=== PATIENT | male | born 1950 | race Caucasian/White ===

== ENCOUNTER → 2017-09-02 | Outpatient (CLI) | payer MEDICARE, OTHER, SELFPAY | PROVIDERS: Visit Provider Family Medicine | DX: E03.9 Hypothyroidism, unspecified (principal); R63.5 Abnormal weight gain; R97.20 Elevated prostate specific antigen [PSA] | CPT/HCPCS: 36415; 80053; 80061; 84153; 84443; 85025 ==

== ENCOUNTER → 2018-08-07 07:41 | Outpatient (CLI) | payer MEDICARE, OTHER, SELFPAY ==
[2018-08-07 08:08] LABS: Basophils # 0.1 K/mm3 (0-0.2); Basophils % 0.7 % (0.1-2.0); Eosinophils # 0.2 K/mm3 (0.0-0.4); Eosinophils % 3.2 % (0.1-12.0); Hematocrit 45.5 % (42.0-52.0); Hemoglobin 14.9 g/dL (14.1-18.0); Lymphocytes # 1.9 K/mm3 (0.7-4.5); Lymphocytes % 25.9 % (10-50); Mean Corpuscular HGB Conc 32.7 g/dL (31.8-35.4); Mean Corpuscular Volume 97.7 fl (80-94); Mean Platelet Volume 7.3 fl (7.4-10.4); Monocytes # 0.6 K/mm3 (0.1-1.0); Monocytes % 7.8 % (1.7-9.3); Neutrophils # 4.5 K/mm3 (1.8-7.8); Neutrophils % 62.3 % (37.0-80.0); Platelet Count 380 K/mm3 (142-424); Red Blood Count 4.65 M/mm3 (4.60-6.20); Red Cell Distribution Width 13.4 % (11.5-17.5); White Blood Count 7.2 K/mm3 (4.8-10.8)
[2018-08-07 09:13] LABS: Alanine Aminotransferase 27 U/L (12-78); Albumin Level 3.7 gm/dL (3.4-5.0); Albumin/Globulin Ratio 1.1 (1.1-1.8); Alkaline Phosphatase 112 U/L (46-116); Anion Gap 13.4 mEq/L (5-15); Aspartate Amino Transferase 14 U/L (15-37); Bilirubin,Total 1.3 mg/dL (0.2-1.0); Blood Urea Nitrogen 7 mg/dL (7-18); Calcium 8.8 mg/dL (8.5-10.1); Carbon Dioxide 30 mmol/L (21.0-32.0); Chloride 100 mmol/L (98-107); Chol/HDL Ratio 4.9 (1-3.5); Cholesterol 240 mg/dL (140-200); Creatinine,Serum 1.01 mg/dL (0.70-1.30); Estimated Glomerular Filt Rate 73 ml/min (>60); GFR (African American) 89 ML/MIN (>60); Globulin 3.5 gm/dl (1.3-3.2); Glucose 103 mg/dL (74-106); HDL Cholesterol 49 mg/dL (27-67); LDL Cholesterol 172 mg/dL (0-130); Potassium 4.4 mmoL/L (3.5-5.1); Sodium 139 mmol/L (136-145); Thyroid Stimulating Hormone 4.27 uIU/ml (0.358-3.740); Total Protein,Serum 7.2 gm/dL (6.4-8.2); Triglycerides 94 mg/dL (30-200); VLDL Cholesterol 19 mg/dL (0-40)
== END ==
PROVIDERS: Visit Provider Family Medicine
DX: R53.83 Other fatigue (principal); E78.5 Hyperlipidemia, unspecified; R97.20 Elevated prostate specific antigen [PSA]
CPT/HCPCS: 36415; 80053; 80061; 84153; 84443; 85025

== ENCOUNTER → 2019-08-21 07:56 | Outpatient (CLI) | payer MEDICARE, SELFPAY ==
[2019-08-21 09:25] LABS: Alanine Aminotransferase 15 U/L (12-78); Alkaline Phosphatase 104 U/L (46-116); Anion Gap 8.1 mEq/L (5-15); Aspartate Amino Transferase 9 U/L (15-37); Bilirubin,Total 0.5 mg/dL (0.2-1.0); Blood Urea Nitrogen 4 mg/dL (7-18); Calcium 8.3 mg/dL (8.5-10.1); Carbon Dioxide 33 mmol/L (21.0-32.0); Chloride 105 mmol/L (98-107); Chol/HDL Ratio 4.5 (1-3.5); Cholesterol 179 mg/dL (140-200); Creatinine,Serum 1.06 mg/dL (0.70-1.30); Estimated Glomerular Filt Rate 69 ml/min (>60); GFR (African American) 84 ML/MIN (>60); Globulin 3.1 gm/dl (1.3-3.2); Glucose 88 mg/dL (74-106); HDL Cholesterol 40 mg/dL (27-67); LDL Cholesterol 116 mg/dL (0-130); Potassium 4.1 mmoL/L (3.5-5.1); Sodium 142 mmol/L (136-145); Thyroid Stimulating Hormone 2.57 uIU/ml (0.358-3.740); Total Protein,Serum 6.1 gm/dL (6.4-8.2); Triglycerides 117 mg/dL (30-200); VLDL Cholesterol 23 mg/dL (0-40)
== END ==
PROVIDERS: Visit Provider Family Medicine
DX: E03.9 Hypothyroidism, unspecified (principal); E78.5 Hyperlipidemia, unspecified; R97.20 Elevated prostate specific antigen [PSA]; Z12.5 Encounter for screening for malignant neoplasm of prostate
CPT/HCPCS: 36415; 80053; 80061; 84443; G0103

== ENCOUNTER 2020-03-02 12:39 | Emergency (ER) | payer MEDICARE, OTHER, SELFPAY ==
[2020-03-02 12:39] VITALS: BP 166/84; PULSE 85; RESP 18; TEMP 36.8; O2SAT 98
--- NOTE | 2020-03-02 12:42 | CT_ITS ---
PROCEDURE: CT HEAD/BRAIN WO CON CLINICAL INDICATION: Stroke Protocol Decreased sensation right side of body COMPARISON: No exams were available for comparison TECHNIQUE: Axial images obtained. All CT scans at the facility use one or more dose reduction, viz: automated exposure control, ma/kV adjustment per patient size (including targeted exams where dose is matched to indication, i.e. head), or iterative reconstruction technique. FINDINGS: No midline shift, mass effect, intracranial hemorrhage, hydrocephalus, or extra-axial fluid collection is evident. There are mild periventricular hypodensities consistent with chronic ischemic white matter changes. The sylvian fissures and cortical sulci are prominent. The calvarium has an unremarkable appearance. No mastoid effusion. No sinus air-fluid level. IMPRESSION: Findings of moderate age-appropriate cortical atrophy and mild chronic ischemic white matter changes, no acute intracranial pathology noted Dictated by: Dr. Des Barton MD 03/02/2020 13:[address] Des Barton MD in [place] 03/02/2020 13:03
--- NOTE | 2020-03-02 12:43 | PC.NURSE ---
notified rad of Ct head order-stroke protocol
--- NOTE | 2020-03-02 12:45 | CT_ITS ---
PROCEDURE: CT SINUS WO CON CLINICAL HISTORY: Head Pressure COMPARISON: No exams were available for comparison TECHNIQUE: Axial images obtained with sagittal and coronal reformats. All CT scans at the facility use one or more dose reduction, viz: automated exposure control, ma/kV adjustment per patient size (including targeted exams where dose is matched to indication, i.e. head), or iterative reconstruction technique. FINDINGS: There is moderate mucoperiosteal thickening floor of left maxillary sinus. Right maxillary sinus is clear. The ethmoid sinuses are clear, there is minimal mucoperiosteal thickening right frontal sinus. The sphenoid sinus is clear. The mastoids are clear. Both internal auditory canals appear normal. The nasal septum is in the midline. IMPRESSION: Mild chronic inflammatory changes of the left maxillary and right frontal sinus Dictated by: Dr. Des Barton MD 03/02/2020 13:[address] Des Barton MD in [facility] 03/02/2020 13:05
--- NOTE | 2020-03-02 12:45 | PC.NURSE ---
ANABELLA JULIEN at
--- NOTE | 2020-03-02 12:48 | PC.NURSE ---
pt to rad
--- NOTE | 2020-03-02 12:48 | PC.NURSE ---
pt to CT
--- NOTE | 2020-03-02 12:59 | PC.NURSE ---
Pt returned from rad
--- NOTE | 2020-03-02 13:21 | HMH.EDGENADL ---
ED Disposition Clinical Impression: Acute sinusitis Disposition: Home, Self-Care Condition on Discharge: Good Instructions: Sinusitis Prescriptions: Azithromycin [Zithromax 500mg Tab] 500 mg PO DAILY 7 Days #7 tab Prescription Printed Referrals: Gibson Atkins MD [Primary Care Provider] - - Critical Care Critical Care Time: No Attestation: On 03/02/20, the high probability of a clinically significant, sudden or life threatening deterioration of the following system(s) required my full and direct attention, intervention and personal management. The time I documented below is in addition to time spent performing reported procedures but includes the following listed in this critical care notation. Medical Decision Making - Medical Records Medical records reviewed: Yes: I reviewed the patient's medical records. - Trung Inquiry Pt receiving controlled substance: No Vital Signs: 03/02/20 12:39 Temperature 98.2 F Temperature Source Oral Pulse Rate [Right Radial] 85 Respiratory Rate 18 Blood Pressure [Right Arm] 166/84 H Blood Pressure Mean [Right Arm] 111 Blood Pressure Source [Right Arm] Automatic Cuff Blood Pressure Position [Right Arm] Sitting 02 Sat by Pulse Oximetry 98 Oxygen Delivery Method Room Air - Lab Data Lab results reviewed: Yes: I reviewed the patient's lab results. Orders (Tests/Meds): ED MEDICATIONS Discontinued Medications Generic Name Dose Route Start Last Admin Trade Name Rosibel PRN Reason Stop Dose Admin Aspirin 325 mg 03/02/20 13:06 03/02/20 13:15 Aspirin 325mg Tablet PO 03/02/20 13:07 325 mg ONCE ONE Administration ORDERS Category Date Time Status Complete Blood Count Auto Diff Stat Lab 03/02/20 13:10 Received Comprehensive Metabolic Panel Stat Lab 03/02/20 13:10 Received - CT Data CT Scan: Head Time Received: 13:[address] Reviewed: Yes: I have viewed the radiologist's interpretation Preliminary Findings: Normal/NAD General Adult HPI - General Chief complaint: Neuro Symptoms/Deficit Stated complaint: Possible stroke Time Seen by Provider: 03/02/20 13:21 Mode of Arrival: Wheelchair Limitations: No Limitations Description of Symptoms (Recalled from ER Triage Doc. by RN): Pt reports has had 3 episodes today of decreased sensation on the R side of his body. Pt also reports that he has had difficulty lifting his leg earlier today during one of these episodes. Pt reports first occurance was at 7:00am today. Pt reports episodes lasted approx 5-10 minutes each. Pt has no deficits upon arrival to ED. - History of Present Illness HPI narrative: 69-year-old male presents the ED having some weakness in the right side of his body that is been going on for the past 4 days. He stated that he felt some numbness and tingling in the right leg and felt a little weak and also complained about the same thing in the left upper extremity as well however here in the ED his symptoms have resolved. He does complain about a lot of sinus pressure in his face and also in the front part of his head as well. He states he is been outside of the last 2 to 3 days cutting grass and is been constantly sneezing and also has some general malaise as well. Otherwise no other acute issues. - Related Data Previous Rx's Medication Instructions Recorded Azithromycin [Zithromax 500mg 500 mg PO DAILY 7 Days #7 tab 03/02/20 Tab] Allergies Allergy/AdvReac Type Severity Reaction Status Date / Time Penicillins Allergy Verified 03/02/20 13:22 [facility] History - Hepatitis A Screen Drug use history?: No High risk sexual behaviors?: No History of sexually transmitted infection?: No Currently employed?: No Childcare worker?: No Do you have indoor plumbing?: Yes Do you have electricity?: Yes Attestation statement:: This patient has been screened for Hepatitis A risk factors. I have reviewed the patient's past medical history: Yes - Social Histo
[2020-03-02 13:26] LABS: Basophils % 0.5 % (0.1-2.0); Chloride 99 mmol/L (98-107); Eosinophils # 0.1 K/mm3 (0.0-0.4); Eosinophils % 0.7 % (0.1-12.0); Hematocrit 44.4 % (42.0-52.0); Hemoglobin 15.4 g/dL (14.1-18.0); Lymphocytes # 0.9 K/mm3 (0.7-4.5); Lymphocytes % 9.9 % (10-50); Mean Corpuscular HGB Conc 34.8 g/dL (31.8-35.4); Mean Corpuscular Hemoglobin 32.6 pg (27.0-31.2); Mean Corpuscular Volume 93.9 fl (80-94); Mean Platelet Volume 7.1 fl (7.4-10.4); Monocytes # 0.5 K/mm3 (0.1-1.0); Monocytes % 5.4 % (1.7-9.3); Neutrophils # 7.8 K/mm3 (1.8-7.8); Neutrophils % 83.5 % (37.0-80.0); Platelet Count 383 K/mm3 (142-424); Potassium 3.7 mmoL/L (3.5-5.1); Red Blood Count 4.72 M/mm3 (4.60-6.20); Sodium 134 mmol/L (136-145); White Blood Count 9.3 K/mm3 (4.8-10.8)
[2020-03-02 13:29] LABS: Alanine Aminotransferase 18 U/L (12-78); Albumin Level 4.2 g/dl (3.5-5.0); Albumin/Globulin Ratio 1.2 (1.1-1.8); Alkaline Phosphatase 123 U/L (38-126); Anion Gap 9.7 mEq/L (5-15); Aspartate Amino Transferase 24 U/L (17-59); Bilirubin,Total 1.2 mg/dl (0.2-1.3); Blood Urea Nitrogen 6 mg/dl (9-20); Carbon Dioxide 29 mmol/L (22.0-30.0); Creatinine Clearance Estimated 63 mL/min (50-200); Estimated Glomerular Filt Rate 84 ml/min (>60); GFR (African American) 101 ML/MIN (>60); Globulin 3.6 g/dL (1.3-3.2); Total Protein,Serum 7.8 g/dl (6.3-8.2)
[2020-03-02 13:30] LABS: Calcium 8.8 mg/dl (8.4-10.2); Glucose 119 mg/dl (74-100)
[2020-03-02 13:54] VITALS: BP 136/75; PULSE 82; RESP 18; TEMP 36.8; O2SAT 98
== END 2020-03-02 13:54 | disposition home or self-care (01) ==
PROVIDERS: Emergency Provider Family Medicine; PCP Family Medicine
DX: J01.90 Acute sinusitis, unspecified (principal); F17.210 Nicotine dependence, cigarettes, uncomplicated; Z88.0 Allergy status to penicillin
CPT/HCPCS: 70450; 70486; 80053; 85025; 99283

== ENCOUNTER → 2020-03-04 08:15 | Outpatient (CLI) | payer MEDICARE, OTHER, SELFPAY ==
--- NOTE | 2020-03-04 08:28 | MR_ITS ---
PROCEDURE: MR ANGIO HEAD WO CON CLINICAL INDICATION: TIA COMPARISON: No exams were available for comparison TECHNIQUE: Standard MRI protocol FINDINGS: The carotid, vertebrobasilar, and arterial anatomy of the anterior, posterior, and the bilateral middle fossa is unremarkable for significant atheromatous disease, critical stenosis, or occlusion. IMPRESSION: Negative Dictated by: Armani Reece 03/04/2020 11:24 Electronically signed by Armani Reece in [place] 03/04/2020 11:24
--- NOTE | 2020-03-04 08:28 | MR_ITS ---
PROCEDURE: MR HEAD/BRAIN WO/W CON CLINICAL INDICATION: TIA COMPARISON: CT HEAD/BRAIN WO CON from 03/02/2020 TECHNIQUE: Standard enhanced brain MRI protocol with 19 cc IV ProHance FINDINGS: There are scattered restrictive diffusion abnormalities within the left occipital white matter with associated T2 prolongation. The vertebral basilar vascular flow voids, 7th and 8th nerves, pituitary, and the orbits are unremarkable. There is mild mucosal thickening of the left maxillary, ethmoidal and frontal sinuses. There are scattered foci of T2 prolongation within the subcortical and periventricular white matter. There are no abnormal enhancing mass lesions or hemorrhage. IMPRESSION: Subacute left occipital CVA, supratentorial micro ischemia Dictated by: Armani Reece 03/04/2020 11:18 Electronically signed by Armani Reece in [place] 03/04/2020 11:18
== END ==
PROVIDERS: PCP Family Medicine; Visit Provider Family Medicine
DX: G45.9 Transient cerebral ischemic attack, unspecified (principal)
CPT/HCPCS: 70544; 70553; A9576

== ENCOUNTER → 2020-03-12 13:12 | Outpatient (CLI) | payer MEDICARE, OTHER, SELFPAY ==
--- NOTE | 2020-03-12 | CA_ITS ---
APPROVED REPORT [employer]: Radha Casas RVT Laterality: Bilateral Study Quality: Excellent Indications: CVA Risk Factors Smoking Doppler Spectral Velocity Analysis ECA (R) 73.10/8.00 cm/s ECA (L) 87.90/9.40 cm/s dICA (R) 101.90/32.50 cm/s dICA (L) 91.60/29.10 cm/s Kaycee (R) 98.70/26.10 cm/s Kaycee (L) 91.60/29.70 cm/s pICA (R) 84.30/26.10 cm/s pICA (L) 79.00/27.70 cm/s dCCA (R) 76.40/14.80 cm/s dCCA (L) 65.50/17.80 cm/s pCCA (R) 100.80/18.60 cm/s pCCA (L) 85.50/16.10 cm/s Vert (R) 47.70/12.60 cm/s Vert (L) 42.20/8.80 cm/s ICA/CCA 1.33 ICA/CCA 1.40 Findings Study suggests less than 20% stenosis of the right and left internal cartoid arteries. Antegrade flow seen bilateral vertebral arteries. Conclusion No increased velocities to suggest hemodynamically significant stenosis in either internal carotid artery. Electronically signed by : Manav Chacon MD 03/12/2020 17:13:40
== END ==
PROVIDERS: PCP Family Medicine; Visit Provider Family Medicine
DX: I63.89 Other cerebral infarction (principal)
CPT/HCPCS: 93880

== ENCOUNTER → 2020-05-30 07:58 | Outpatient (CLI) | payer MEDICARE, OTHER, SELFPAY ==
[2020-05-30 10:29] LABS: Iron 85 ug/dL (49-181)
[2020-05-30 10:33] LABS: Alanine Aminotransferase 18 U/L (12-78); Albumin Level 3.8 g/dl (3.5-5.0); Albumin/Globulin Ratio 1.3 (1.1-1.8); Alkaline Phosphatase 116 U/L (38-126); Anion Gap 7.7 mEq/L (5-15); Aspartate Amino Transferase 29 U/L (17-59); Bilirubin,Total 1.3 mg/dl (0.2-1.3); Blood Urea Nitrogen 8 mg/dl (9-20); Calcium 9.4 mg/dl (8.4-10.2); Carbon Dioxide 31 mmol/L (22.0-30.0); Chloride 105 mmol/L (98-107); Chol/HDL Ratio 4.3 (1-3.5); Cholesterol 189 mg/dl (140-200); Estimated Glomerular Filt Rate 83 ml/min (>60); GFR (African American) 101 ML/MIN (>60); Glucose 96 mg/dl (74-100); HDL Cholesterol 44 mg/dl (40-60); Potassium 4.7 mmoL/L (3.5-5.1); Sodium 139 mmol/L (136-145); Total Protein,Serum 6.8 g/dl (6.3-8.2); Triglycerides 89 mg/dl (30-150); VLDL Cholesterol 18 mg/dL (0-40)
[2020-05-30 10:44] LABS: Direct LDL Cholesterol 128.77 mg/dL (100-129)
[2020-05-30 11:03] LABS: Prostate Specific Ag Screen 4.7 ng/ml (0.0-4.0); Thyroid Stimulating Hormone 3.51 uIU/mL (0.465-4.68)
[2020-05-30 11:21] LABS: Vitamin B12 226 pg/mL (239-931)
== END ==
PROVIDERS: Visit Provider Family Medicine
DX: E03.9 Hypothyroidism, unspecified (principal); E78.5 Hyperlipidemia, unspecified; I63.9 Cerebral infarction, unspecified; R53.83 Other fatigue; Z12.5 Encounter for screening for malignant neoplasm of prostate
CPT/HCPCS: 36415; 80053; 80061; 82607; 83540; 84443; G0103

== ENCOUNTER → 2021-02-27 07:06 | Outpatient (CLI) | payer MEDICARE, OTHER, SELFPAY ==
[2021-02-27 07:58] LABS: Chloride 104 mmol/L (98-107); Potassium 4.3 mmoL/L (3.5-5.1); Sodium 139 mmol/L (136-145)
[2021-02-27 08:00] LABS: Blood Urea Nitrogen 4 mg/dl (9-20); Estimated Glomerular Filt Rate 83 ml/min (>60); GFR (African American) 101 ML/MIN (>60)
[2021-02-27 08:01] LABS: Alanine Aminotransferase 18 U/L (12-78); Albumin Level 3.9 g/dl (3.5-5.0); Albumin/Globulin Ratio 1.3 (1.1-1.8); Alkaline Phosphatase 110 U/L (38-126); Anion Gap 9.3 mEq/L (5-15); Aspartate Amino Transferase 25 U/L (17-59); Bilirubin,Total 1.1 mg/dl (0.2-1.3); Carbon Dioxide 30 mmol/L (22.0-30.0); Cholesterol 219 mg/dl (140-200); Globulin 2.9 g/dL (1.3-3.2); Total Protein,Serum 6.8 g/dl (6.3-8.2); Triglycerides 102 mg/dl (30-150); VLDL Cholesterol 20 mg/dL (0-40)
[2021-02-27 08:02] LABS: Chol/HDL Ratio 5.2 (1-3.5); Glucose 96 mg/dl (74-100); HDL Cholesterol 42 mg/dl (40-60)
[2021-02-27 08:12] LABS: Direct LDL Cholesterol 146.09 mg/dL (100-129)
== END ==
PROVIDERS: Visit Provider Family Medicine
DX: I10 Essential (primary) hypertension (principal); E78.5 Hyperlipidemia, unspecified; I63.9 Cerebral infarction, unspecified
CPT/HCPCS: 36415; 80053; 80061

== ENCOUNTER → 2021-08-24 07:59 | Outpatient (CLI) | payer MEDICARE, OTHER, SELFPAY ==
[2021-08-24 09:26] LABS: Alanine Aminotransferase 17 U/L (12-78); Albumin Level 3.8 g/dl (3.5-5.0); Albumin/Globulin Ratio 1.4 (1.1-1.8); Alkaline Phosphatase 128 U/L (38-126); Anion Gap 8.6 mEq/L (5-15); Aspartate Amino Transferase 25 U/L (17-59); Bilirubin,Total 0.8 mg/dl (0.2-1.3); Blood Urea Nitrogen 6 mg/dl (9-20); Calcium 9.2 mg/dl (8.4-10.2); Carbon Dioxide 33 mmol/L (22.0-30.0); Chloride 99 mmol/L (98-107); Chol/HDL Ratio 4.4 (1-3.5); Cholesterol 200 mg/dl (140-200); Estimated Glomerular Filt Rate 66 ml/min (>60); GFR (African American) 80 ML/MIN (>60); Globulin 2.8 g/dL (1.3-3.2); Glucose 99 mg/dl (74-100); HDL Cholesterol 45 mg/dl (40-60); Potassium 4.6 mmoL/L (3.5-5.1); Sodium 136 mmol/L (136-145); Total Protein,Serum 6.6 g/dl (6.3-8.2); Triglycerides 99 mg/dl (30-150); VLDL Cholesterol 20 mg/dL (0-40)
[2021-08-24 09:37] LABS: Direct LDL Cholesterol 133.19 mg/dL (100-129)
[2021-08-24 09:57] LABS: Prostate Specific Ag, Diagnost 6.01 ng/ml (0.0-4.0)
== END ==
PROVIDERS: Visit Provider Family Medicine
DX: I10 Essential (primary) hypertension (principal); E78.5 Hyperlipidemia, unspecified; R97.20 Elevated prostate specific antigen [PSA]
CPT/HCPCS: 36415; 80053; 80061; 84153

== ENCOUNTER 2024-07-06 08:30 | Outpatient (CLI) | payer MEDICARE, OTHER, SELFPAY ==
[2024-07-06 08:58] LABS: Basophils # 0.1 K/mm3 (0-0.2); Eosinophils # 0.1 K/mm3 (0.0-0.4); Eosinophils % 1.8 % (0.1-12.0); Hematocrit 45.1 % (42.0-52.0); Hemoglobin 15.3 g/dL (14.1-18.0); Lymphocytes % 18.2 % (10-50); Mean Corpuscular Hemoglobin 32.4 pg (27.0-31.2); Mean Corpuscular Volume 95.1 fl (80-94); Mean Platelet Volume 7.1 fl (7.4-10.4); Monocytes # 0.6 K/mm3 (0.1-1.0); Neutrophils # 3.8 K/mm3 (1.8-7.8); Platelet Count 386 K/mm3 (142-424); Red Blood Count 4.74 M/mm3 (4.60-6.20); Red Cell Distribution Width 13.1 % (11.5-17.5); White Blood Count 5.6 K/mm3 (4.8-10.8)
[2024-07-06 09:47] LABS: Alanine Aminotransferase 14 U/L (12-78); Albumin Level 3.9 g/dl (3.5-5.0); Albumin/Globulin Ratio 1.6 (1.1-1.8); Alkaline Phosphatase 102 U/L (38-126); Anion Gap 7.7 mEq/L (5-15); Aspartate Amino Transferase 24 U/L (17-59); Bilirubin,Total 0.8 mg/dl (0.2-1.3); Blood Urea Nitrogen 8 mg/dl (9-20); Calcium 9.2 mg/dl (8.4-10.2); Carbon Dioxide 29 mmol/L (22.0-30.0); Chloride 102 mmol/L (98-107); Chol/HDL Ratio 2.9 (1-3.5); Cholesterol 176 mg/dl (140-200); Estimated Glomerular Filt Rate 82 ml/min (>60); GFR (African American) 100 ML/MIN (>60); Globulin 2.4 g/dL (1.3-3.2); Glucose 89 mg/dl (74-100); HDL Cholesterol 60 mg/dl (40-60); Potassium 4.7 mmoL/L (3.5-5.1); Sodium 134 mmol/L (136-145); Total Protein,Serum 6.3 g/dl (6.3-8.2); Triglycerides 63 mg/dl (30-150); VLDL Cholesterol 13 mg/dL (0-40)
[2024-07-06 09:57] LABS: Direct LDL Cholesterol 104.71 mg/dL (100-129)
[2024-07-06 10:17] LABS: Prostate Specific Ag, Diagnost 4.99 ng/ml (0.0-4.0); Thyroid Stimulating Hormone 2.34 uIU/mL (0.465-4.68)
== END 2024-07-06 23:59 | disposition home or self-care (01) ==
LOC: LAB 08:37
PROVIDERS: PCP Family Medicine; Visit Provider Family Medicine
DX: I63.9 Cerebral infarction, unspecified (principal); R97.20 Elevated prostate specific antigen [PSA]; R63.4 Abnormal weight loss; J44.9 Chronic obstructive pulmonary disease, unspecified
CPT/HCPCS: 36415; 80053; 80061; 84153; 84443; 85025

== ENCOUNTER 2025-06-17 13:35 | Outpatient (CLI) | payer MEDICARE, OTHER, SELFPAY ==
--- OUTSIDE RECORDS SUMMARY | 2025-02-21 10:00 | XMS_ITS ---
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 Name Role Phone Yo Atkins Primary Care Provider Allergies Allergen (clinical drug ingredient) Drug/Non Drug Allergy documented on EMR Reaction Allergy Type Onset Date Status Penicillin he denies PCN allergy as of 10/28/2009 Drug Allergy Active REASON FOR VISIT Sore ribs Medications Medication SIG (Take, Route, Frequency, Duration) Notes Start Date End Date Status Bactrim DS 800-160 MG 1 tablet Orally Tw o times a day 10/04/2024 Not-Taking Plavix 75 MG 1 tab(s) orally once a day; Duration: 90 days Active Aspirin 81 MG 1 tab(s) orally ever y other day Active Clotrimazole-Betamethaso ne 1-0.05 % 1 application Externally Twice a day 09/11/2024 Not-Taking Vital Signs Weight 147.0 lbs 02/21/2025 Blood pressure systolic 128 mm Hg 02/22/20 25 Blood pressure diastolic 70 mm Hg 025 Heart Rate 68 /min 02/21/2025 Height 68 in 02/21/2025 BMI 22.35 kg/m2 02/21/2025 Encounters Encounter Location Date Provider Diagnosis [facility] [address] [facility] [address] [place] [id number] 02/21/2025 Yo Atkins Chest wall pain R07. 89 ; Chronic obstructive pulmonary disease, unspecified COPD type J44.9 ; Dyslipidemia E78.5 ; Tobacco use disorder F17.200 and BMI 22.0-22.9, adult Z68.22 Assessments Encounter Date Diagnosis (ICD Code) Assessment Notes Treatment Notes Treatment Clinical Notes Section Notes 02/21/2025 Chest wall pain (ICD-10 - R07.89) Alternate heat and ice. Tylenol and/or Motrin as needed 02/21/2025 Chronic obstructive pulmonary disease, unspecified COPD type (ICD-10 - J44.9) 02/21/2025 Dyslipidemia (ICD-10 - E78.5) 02/21/2025 Tobacco use disorder (ICD-10 - F17.200) 02/21/2025 BMI 22.0-22.9, adult (ICD-10 - Z68.22) Plan Of Treatment Next Appt Details Follow Up: prn, Reason: Progress Notes * Santos ESPINOZANEDOB: (75 yo M)Acc No.[id number]:02/21/2025 Progress Notes Patient: Santos RAMOS Provider: Yo Atkins M.D. :1950 A ge:74 Y S ex:Male Date:02/21/2025 Address:[address] [place] [address] [facility] [id number] Subjective: * Chief Complaints: * 1 . Sore ribs. * HPI: C hest: Misael was working in his yard yesterday and woke this morning with soreness around the left lateral rib cage. He recalls no specific injury. Denies increased shortness of breath, cough, hemoptysis. * ROS: D ERMATOLOGY: no R nilton. n o H rosa. G ASTROENTEROLOGY: no N ausea. n o V omiting. n o D iarrhea.? U ROLOGY: no D ifficulty urinating. n o B lood in urine. 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 * Surgical History: a ppendectomy child, C-scope 04/2015; 05/2018. * Hospitalization/Major Diagno stic Procedure: n one , [facility] ER-fell and knocked himself unconscious 11/21/10, [facility] ER-felt dizzy, unable to walk 03/02/2020. * Family History: F ather: , heart attack. M other: , kidney disease. 1 brother(s) . .? * Social History: C URRENT TOBACCO USE S moking Status: Patient does smoke, packs per day: 2, number of cigarettes per day: 40, Since age of: 25, Smoking preference: cigarettes. C affeine: yes, frequency:. Exercise: yes. Home smoke detector use: yes. Marital Status: . Occupation: [employer]. Past smoking status: yes, PPD: 2 , years: since age of 25 yrs. ,determination:. Recreational drug use: no. Alcohol: no. * Medications: T aking Aspirin 81 MG Tablet Delayed Release 1 tab(s) orally every other day , Taking Plavix 75 MG Tablet 1 tab(s) orally once a day , Not-Taking Bactrim DS 800-160 MG Tablet 1 tablet Orally Two times a day , Not-Taking Clotrimazole-Betamethasone 1-0.05 % Cream 1 application Externally Twice a day , Medication List reviewed and reconciled with the patient * Allergies: P enicillin: he denies PCN allergy as of 10/28/2009. Objective: * Vitals: W t: 147.0, Temp: 97.7, BP: 128/70, HR: 68, Nurse: laura, Ht: 68, BMI:22.35. * Examination: G eneral Examination: General Appearance: N AD. H EENT: T he lesion on his right face is blistered from his recent cryosurgery. C hest: T here is mild tenderness over the left lateral rib cage. No point tenderness.. H eart: R SR. L ungs: G enerally diminished breath sounds. Assessment: * Assessment: 1. C hest wall pain - R07.89 (Primary) 2 . C hronic obstructive pulmonary disease, unspecified COPD type - J44.9 3 . D yslipidemia - E78.5 4 . T obacco use disorder - F17.200 5 . B MS 22.0-22.9, adult - Z68.22 ? Plan: * Treatment: * Procedure Codes: G 2211 Complex e/m visit add on, G5420 BMI<30 AND >=22 CALC & DOCU, G5879 BP SCR PRFRM RCMDD DEFIND SCR INTVL, G8752 MOST RECENT SYSTOLIC BP < 140MM HG, G8754 MOST RECENT DIASTOLIC BP < 90MM HG * Follow Up: p rn * Images: Billing Information: * Visit Code: 05519 Office Visit, Est Pt., Level 3. * Procedure Codes: G2211 Complex e/m visit add on. G8420 BMI<30 AND >=22 CALC & DOCU. G8783 BP SCR PRFRM RCMDD DEFIND SCR INTVL. G8752 MOST RECENT SYSTOLIC BP < 140MM HG. G8754 MOST RECENT DIASTOLIC BP < 90MM HG. * Electronic signature of Yo Atkins MD on 06/17/2025 at 01:40 PM EDT Sign off status: Pending * Provider: Yo Atkins M.D. Date: 0 02/21/2025 Generated for Marisel beasley/Diya/Zenysmitting on: 1 01:40 PM EDT History and Physical Notes * HPI (History of Present Illness) Category Sub-Category Detail Notes Category Not es Chest Misael was worki ramos in his yard yesterday and woke this morning with soreness around the left lateral rib cage. He recalls no specific injury. Denies increased shortness of breath, cough, hemoptysis. Examination Category Sub-Category Detail Notes Category Not es General Examination HEENT: The lesion o n his right face is blistered from his recent cryosurgery Heart: RSR Lungs: Generally diminished breath sounds General Appearance: NAD Chest: There is mild tender ness over the left lateral rib cage. No point tenderness.
--- OUTSIDE RECORDS SUMMARY | 2025-04-11 11:45 | XMS_ITS ---
[facility] Address [address] [place] [id number] Care Team Providers Care Curing Machine Operator Name Role Phone Yo Atkins Primary Care Provider Allergies Allergen (clinical drug ingredient) Drug/Non Drug Allergy documented on EMR Reaction Allergy Type Onset Date Status Penicillin he denies PCN allergy as of 10/28/2009 Drug Allergy Active Results Component Value Reference Range Notes CBC Venipuncture (in house) Reviewed date:04/16/2025 10:22:13 PM Interpretation:Normal Performing Lab: Notes/Report: Normal wbc 7.4 3.5 - 10 lymph 15.8 15 - 50 mid 5.1 2 - 15 gran 79.1 35 - 80 rbc 4.36 3.5 - 5.5 hgb 13.7 11.5 - 16.5 hct 40.2 35 - 55 mcv 92.2 75 - 100 mch 31.4 25 - 35 mchc 34.1 31 - 38 platlet 418 100 - 400 P-Comprehensive Metabolic Pa suhail (CMP) Reviewed date:04/16/2025 10:22:13 PM Interpretation:Na 131, cl 94, bun 7, bili 1.3 Performing Lab: Notes/Report: CLIA: [id number] Philippe Lin MD, Outside Sales Consultant [facility] , [address], [place] [address] Test performed by [facility], [facility] Sodium 131 135-145 mmol/L Potassium 4.3 3.5-5.3 mmol/L Chloride 94 97-108 mmol/L CO2 25 20-32 mmol/L Glucose 85 65-99 mg/dL BUN 7 8-23 mg/dL Creatinine 0.83 0.70-1.30 mg/dL Calcium 8.8 8.6-10.4 mg/dL eGFR by Creatinine 91 >59 mL/min/1.73m2 Protein 6.2 6.0-8.3 g/dL Albumin 4.0 3.5-5.3 g/dL Alkaline Phosphatase 105 40-129 IU/L ALT (SGPT) 13 <5-55 IU/L AST (SGOT) 17 <5-46 IU/L Bilirubin, Total 1.3 <0.2-1.2 mg/dL A/G Ratio 1.8 1.1-2.5 P-Magnesium Reviewed date:04/16/2025 10:22:13 PM Interpretation:Normal Performing Lab: Notes/Report: Test performed by [facility] [address] [place] [address] , [address], [place] [address] Philippe Lin MD, Outside Sales Consultant CLIA: [id number] Magnesium 2.1 1.6-2.4 mg/dL P-PSA Reviewed date:04/16/2025 10:22:13 PM Interpretation:8.41 Performing Lab: Notes/Report: Test performed by [facility] [address] [place] [address] , [address], [place] [address] Philippe Lin MD, Outside Sales Consultant CLIA: [id number] PSA 8.41 <4.00 ng/mL Please note this is an ultrasensitive PSA assay with a lower limit of detection of 0.014 ng/mL. This test is performed by the [employer] ECLIA methodology. Values obtained with different assay methods or kits cannot be directly compared. P-TSH Reviewed date:04/16/2025 10:22:13 PM Interpretation:Normal Performing Lab: Notes/Report: Test performed by [facility] [address] [place] [address] , [address], [place] [address] Philippe Lin MD, Outside Sales Consultant CLIA: [id number] TSH 1.99 0.43-5.25 mU/L REASON FOR VISIT check up, muscles and sinuses, Needs labs, low dose chest CT, Prevnar, & shingles vaccine Medications Medication SIG (Take, Route, Frequency, Duration) Notes Start Date End Date Status Clotrimazole-Betamethaso ne 1-0.05 % 1 application Externally Twice a day 09/11/2024 Not-Taking Symbicort 160-4.5 MCG/ACT 2 puffs Inhalation twice a day 04/11/2025 Active Plavix 75 MG 1 tab(s) orally once a day; Duration: 90 days Active Bactrim DS 800-160 MG 1 tablet Orally Tw o times a day 10/04/2024 Not-Taking Aspirin 81 MG 1 tab(s) orally ever y other day Active Vital Signs Weight 144.0 lbs 04/11/2025 Blood pressure systolic 130 mm Hg 04/11/20 25 Blood pressure diastolic 80 mm Hg 025 Heart Rate 86 /min 04/11/2025 Height 68 in 04/11/2025 BMI 21.89 kg/m2 04/11/2025 Encounters Encounter Location Date Provider Diagnosis [facility] [address] [facility] [address] [place] [id number] 04/11/2025 R Patric Atkins Leg pain, bilateral M79.604 ; Weight loss R63.4 ; Elevated PSA R97.20 ; Chronic obstructive pulmonary disease, unspecified COPD type J44.9 ; Tobacco use disorder F17.200 and BMI 21.0-21.9, adult Z68.21 Assessments Encounter Date Diagnosis (ICD Code) Assessment Notes Treatment Notes Treatment Clinical Notes Section Notes 04/11/2025 Leg pain, bilateral (ICD-10 - M79.604) 04/11/2025 Weight loss (ICD-10 - R63.4) 04/11/2025 Elevated PSA (ICD-10 - R97.20) 04/11/2025 Chronic obstructive pulmonary disease, unspecified COPD type (ICD-10 - J44.9) 04/11/2025 Tobacco use disorder (ICD-10 - F17.200) 04/11/2025 BMI 21.0-21.9, adult (ICD-10 - Z68.21) Plan Of Treatment Medication Medication Name Sig Start Date Stop Date Notes Symbicort 160-4.5 MCG/ACT 2 puffs Inhalation twice a day 0 04/11/2025 Next Appt Details Follow Up: via phone to repo rt test results, Reason: Progress Notes * Santos ESPINOZAOB: (75 yo M)Acc No.[id number]:04/11/2025 Progress Notes Patient: Leona Santos HUDSON Provider: Yo Atkins M.D. :1950 A ge:74 Y S ex:Male Date:04/11/2025 Address:[id number] Subjective: * Chief Complaints: * 1 . Check up, muscles and sinuses. 2. Needs labs, low dose chest CT, Prevnar, & shingles vaccine. * HPI: P ain: Misael has been having pain in both calves, L>R, for the past few weeks. It is described more as a muscle spasm and it has awaken him at night. It is better with ambulation. He has not noticed any increased swelling. E NT/respiratory: He has been having increased dyspnea with exertion. Unfortunately he continues to smoke with no efforts at cessation. He was recently started on Symbicort inhaler by phone encounter and this has helped his symptoms. * ROS: D ERMATOLOGY: no R nilton. [...] Hospitalization/Major Diagno stic Procedure: n one , [facility] ER-fell and knocked himself unconscious 11/21/10, [facility] ER-felt dizzy, unable to walk 03/02/2020. * [...] of 10/28/2009. Objective: * Vitals: W t: 144.0, Temp: 97.6, BP: 130/80, HR: 86, Nurse: laura, Ht: 68, BMI:21.89. * Examination: G eneral Examination: General Appearance: N AD. H eart: R SR. L ungs:?Chest with generally diminished breath sounds. No rales or wheezes.. E xtremities:?no leg edema. The left calf is larger than the right but no swelling, redness, warmth, tenderness or cords palpable.. Assessment: * Assessment: 1. L eg pain, bilateral - M79.604 (Primary) 2 . W eight loss - R63.4 ? 3 . E levated PSA - R97.20 4 . C hronic obstructive pulmonary disease, unspecified COPD type - J44.9 5 . T obacco use disorder - F17.200 & #160; 6 . B OR 21.0-21.9, adult - Z68.21 Plan: * Treatment: Value Reference Range A /G Ratio 1.8 1.1-2.5 - * A lbumin 4.0 3.5-5.3 - g/dL * A lkaline Phosphatase 105 40-129 - IU/L * A LT (SGPT) 13 <5-55 - IU/L * A ST (SGOT) 17 <5-46 - IU/L * B ilirubin, Total 1.3 H <0.2-1.2 - mg/dL * B UN 7 L 8-23 - mg/dL * C alcium 8.8 8.6-10.4 - mg/dL * C hloride 94 L 97-108 - mmol/L * C O2 25 20-32 - mmol/L * C reatinine 0.83 0.70-1.30 - mg/dL * G lucose 85 65-99 - mg/dL * P otassium 4.3 3.5-5.3 - mmol/L * S odium 131 L 135-145 - mmol/L * P rotein 6.2 6.0-8.3 - g/dL * e GFR by Creatinine 91 >59 - mL/min/1.73m2 * Yo Atkins 04/16/2025 1 0:21:47 PM EDT > discussed with patient by phone 2.?Weight loss?LAB: P-Comprehensive Metabolic Panel (CMP) (Collection Date & Time - 04/11/2025 03:25 PM)?Na 131, cl 94, bun 7, bili 1.3* Value Reference Range A /G Ratio 1.8 1.1-2.5 - * A lbumin 4.0 3.5-5.3 - g/dL * A lkaline Phosphatase 105 40-129 - IU/L * A LT (SGPT) 13 <5-55 - IU/L * A ST (SGOT) 17 <5-46 - IU/L * B ilirubin, Total 1.3 H <0.2-1.2 - mg/dL * B UN 7 L 8-23 - mg/dL * C alcium 8.8 8.6-10.4 - mg/dL * C hloride 94 L 97-108 - mmol/L * C O2 25 20-32 - mmol/L * C reatinine 0.83 0.70-1.30 - mg/dL * G lucose 85 65-99 - mg/dL * P otassium 4.3 3.5-5.3 - mmol/L * S odium 131 L 135-145 - mmol/L * P rotein 6.2 6.0-8.3 - g/dL * e GFR by Creatinine 91 >59 - mL/min/1.73m2 * Yo Atkins 04/16/2025 1 0:21:47 PM EDT > discussed with patient by phone ?LAB: P-Magnesium (Collection Date & Time - 04/11/2025 03:25 PM)?Normal* Value Reference Range M agnesium 2.1 1.6-2.4 - mg/dL * Yo Atkins 04/16/2025 1 0:21:47 PM EDT > discussed with patient by phone ?LAB: P-TSH (Collection Date & Time - 04/11/2025 03:25 PM)?Normal* Value Reference Range T SH 1.99 0.43-5.25 - mU/L * Yo Atkins 04/16/2025 1 0:21:47 PM EDT > discussed with patient by phone 3.?Elevated PSA?LAB: P-Magnesium (Collection Date & Time - 04/11/2025 03:25 PM)?Normal* Value Reference Range M agnesium 2.1 1.6-2.4 - mg/dL * Yo Atknis 04/16/2025 1 0:21:47 PM EDT > discussed with patient by phone ?LAB: P-PSA (Collection Date & Time - 04/11/2025 03:25 PM)?8.41* Value Reference Range P SA 8.41 H <4.00 - ng/mL * Yo Atkins 04/16/2025 1 0:21:47 PM EDT > discussed with patient by phone ?LAB: P-TSH (Collection Date & Time - 04/11/2025 03:25 PM)?Normal* Value Reference Range T SH 1.99 0.43-5.25 - mU/L * Yo Atkins 04/16/2025 1 0:21:47 PM EDT > discussed with patient by phone ?LAB: CBC Venipuncture (in house) (Collection Date & Time - 04/11/2025)? Normal* Value Reference Range w bc 7.4 3.5 - 10 * l ymph 15.8 15 - 50 * m id 5.1 2 - 15 * g ran 79.1 35 - 80 * r bc 4.36 3.5 - 5.5 * h gb 13.7 11.5 - 16.5 * h ct 40.2 35 - 55 * m cv 92.2 75 - 100 * m ch 31.4 25 - 35 * m chc 34.1 31 - 38 * p rafaela 418 100 - 400 * Thuy Raymundo 04/11/2025 04:1 9:17 PM EDT > Yo Atkins 04/16/2025 10:21:47 PM EDT > discussed with patient by phone 4.?Chronic obstructive pulmonary disease, unspecified COPD type? Start Symbicort Aerosol, 160-4.5 MCG/ACT, 2 puffs, Inhalation, twice a day, 3.?? * Procedure Codes: G 2211 Complex e/[place], [address] CBC WITH AUTO DIFF, 43684 VENIPUNCT, ROUTINE*, G8420 BMI<30 AND >=22 CALC & DOCU, G8783 BP SCR PRFRM RCMDD DEFIND SCR INTVL, G8752 MOST RECENT SYSTOLIC BP < 140MM HG, G8754 MOST RECENT DIASTOLIC BP < 90MM HG * Follow Up: v ia phone to report test results * Images: Billing Information: * Visit Code: 93118 Office Visit, Est Pt., Level 3. * Procedure Codes: G2211 Complex e/[place]. [address] CBC WITH AUTO DIFF. 81298 VENIPUNCT, ROUTINE*. G8420 BMI<30 AND >=22 CALC & DOCU. G8783 BP SCR PRFRM RCMDD DEFIND SCR INTVL. G8752 MOST RECENT SYSTOLIC BP < 140MM HG. G8754 MOST RECENT DIASTOLIC BP < 90MM HG. * Electronic signature of Yo Atkins MD on 06/17/2025 at 01:39 PM EDT Sign off status: Pending * Provider: Yo Atkins M.D. Date: 0 04/11/2025 Generated for Marisel beasley/Diya/eTransmitting on: 1 01:39 PM EDT History and Physical Notes * HPI (History of Present Illness) Category Sub-Category Detail Notes Category Not es ENT/respiratory He has been having increased dyspnea with exertion. Unfortunately he continues to smoke with no efforts at cessation. He was recently started on Symbicort inhaler by phone encounter and this has helped his symptoms. Fortino Douglas has been having pain in both calves, L>R, for the past few weeks. It is described more as a muscle spasm and it has awaken him at night. It is better with ambulation. He has not noticed any increased swelling. Examination Category Sub-Category Detail Notes Category Not es General Examination Heart: RSR Lungs: Chest with generally diminished breath sounds. No rales or wheezes. Extremities: no leg edema. The le ft calf is larger than the right but no swelling, redness, warmth, tenderness or cords palpable. General Appearance: NAD
--- OUTSIDE RECORDS SUMMARY | 2025-05-09 10:00 | XMS_ITS ---
Author Organization [facility] Address [address] [place] [phone] Care Team Providers Care Ring Cutter Lathe Operator Name Role Phone Yo Atkins Primary Care Provider Kandy Morales Unavailable [phone] Allergies Allergen (clinical drug ingredient) Drug/Non Drug Allergy documented on EMR Reaction Allergy Type Onset Date Status Penicillin he denies PCN allergy as of 10/28/2009 Drug Allergy Active REASON FOR VISIT 3 skin tears Medications Medication SIG (Take, Route, Frequency, Duration) Notes Start Date End Date Status Aspirin 81 MG 1 tab(s) orally ever y other day Active Symbicort 160-4.5 MCG/ACT 2 puffs Inhala tion twice a day 04/11/2025 Active Plavix 75 MG 1 tab(s) orally once a day; Duration: 90 days Active Vital Signs Weight 143.8 lbs 05/09/2025 Blood pressure systolic 132 mm Hg 05/09/20 25 Blood pressure diastolic 80 mm Hg 025 Heart Rate 69 /min 05/09/2025 Height 68 in 05/09/2025 BMI 21.86 kg/m2 05/09/2025 Encounters Encounter Location Date Provider Diagnosis [facility] [address] [facility] [address] [place] [phone] 05/09/2025 Kandy Morales Skin abrasion T14.8X XA and BMI 21.0-21.9, adult Z68.21 Assessments Encounter Date Diagnosis (ICD Code) Assessment Notes Treatment Notes Treatment Clinical Notes Section Notes 05/09/2025 Skin abrasion (ICD-10 - T14.8XXA) The areas were cleaned with peroxide and antibiotic ointment telfa and co-ban were placed. Will keep clean and covered at home until they heal. 05/09/2025 BMI 21.0-21.9, adult (ICD-10 - Z68.21) Plan Of Treatment Treatment Notes Assessment Notes Skin abrasion The areas were clean ed with peroxide and antibiotic ointment telfa and co-ban were placed. Will keep clean and covered at home until they heal. Next Appt Details Follow Up: prn, Reason: Progress Notes * Santos ESPINOZANEDOB: (75 yo M)Acc No.[id number]:05/09/2025 Progress Notes Patient: Santos RAMOS Provider: SALVATORE Madsen :1950 A ge:75 Y S ex:Male Date:05/09/2025 Address:[address] [place] [address] [place] [id number] Pcp:Yo Atkins Subjective: * Chief Complaints: * 1 . 3 skin tears. * HPI: D ermatology: 75 year old male presents with c/o laceration P t states he was working on a table and his arm hit the concrete and tore the skin in 3 places. * ROS: D ERMATOLOGY: no R nilton. [...] Hospitalization/Major Diagno stic Procedure: n one , [facility] ER-fell and knocked himself unconscious 11/21/10, [facility] ER-felt dizzy, unable to walk 03/02/2020. [...] 1 tab(s) orally once a day , Taking Symbicort 160-4.5 MCG/ACT Aerosol 2 puffs Inhalation twice a day , Discontinued Bactrim DS 800-160 MG Tablet 1 tablet Orally Two times a day , Discontinued Clotrimazole-Betamethasone 1-0.05 % Cream 1 application Externally Twice a day , Medication List reviewed and reconciled with the patient * Allergies: P enicillin: he denies PCN allergy as of 10/28/2009. Objective: * Vitals: W t: 143.8, Temp: 98.3, BP: 132/80, HR: 69, Nurse: carmen, Ht: 68, BMI:21.86. * Examination: G eneral Examination: General Appearance: N AD. C hest: n ormal shape and expansion. H eart: R SR. L ungs: c lear to auscultation. S kin: 3 abrasions on the left forearm. Assessment: * Assessment: 1. S kin abrasion - T14.8XXA (Primary) 2 . B PA 21.0-21.9, adult - Z68.21? Plan: * Treatment: * Procedure Codes: G 2211 Complex e/m visit add on, G8420 BMI<30 AND >=22 CALC & DOCU, G8783 BP SCR PRFRM RCMDD DEFIND SCR INTVL, G8752 MOST RECENT SYSTOLIC BP < 140MM HG, G8754 MOST RECENT DIASTOLIC BP < 90MM HG * Follow Up: p rn * Images: Billing Information: * Visit Code: 30088 Office Visit, Est Pt., Level 3. * Procedure Codes: G2211 Complex e/m visit add on. G8420 BMI<30 AND >=22 CALC & DOCU. G8783 BP SCR PRFRM RCMDD DEFIND SCR INTVL. G8752 MOST RECENT SYSTOLIC BP < 140MM HG. G8754 MOST RECENT DIASTOLIC BP < 90MM HG. * Electronic signature of SALVATORE Mcdaniels on 06/17/2025 at 01:40 PM EDT Sign off status: Pending * Provider: SALVATORE Madsen Date: 0 05/09/2025 Generated for Martini ramos/Diya/eTransmitting on: 1 01:40 PM EDT History and Physical Notes * HPI (History of Present Illness) Category Sub-Category Detail Notes Category Not es Dermatology laceration Pt states he was working on a table and his arm hit the concrete and tore the skin in 3 places Examination Category Sub-Category Detail Notes Category Not es General Examination Heart: RSR Lungs: clear to auscultatio n General Appearance: NAD Skin: 3 abrasions on the l eft forearm Chest: normal shape and exp ansion
--- OUTSIDE RECORDS SUMMARY | 2025-05-28 09:45 | XMS_ITS ---
Author Organization [facility] Address [address] [place] [phone] Care Team Providers Care Clinical Trials Specialist Name Role Phone Yo Atkins Primary Care Provider Allergies Allergen (clinical drug ingredient) Drug/Non Drug Allergy documented on EMR Reaction Allergy Type Onset Date Status Penicillin he denies PCN allergy as of 10/28/2009 Drug Allergy Active REASON FOR VISIT poss sinus- per Dr. Kuhn Medications Medication SIG (Take, Route, Frequency, Duration) Notes Start Date End Date Status Flonase Allergy Relief 50 MCG/ACT 1 spray in each nostril Nasally Twice a day; Duration: 30 days 05/28/2025 Active Breyna 160-4.5 MCG/ACT 2 puffs Inhalatio n twice a day 05/28/2025 Active Aspirin 81 MG 1 tab(s) orally ever y other day Active Plavix 75 MG 1 tab(s) orally once a day; Duration: 90 days Active Vital Signs Weight 146.6 lbs 05/28/2025 Blood pressure systolic 134 mm Hg 05/28/20 25 Blood pressure diastolic 78 mm Hg 025 Heart Rate 73 /min 05/28/2025 Height 68 in 05/28/2025 BMI 22.29 kg/m2 05/28/2025 Encounters Encounter Location Date Provider Diagnosis [facility] [address] [place] [phone] 05/28/2025 Yo Atkins Acute sinusitis J01. 90 ; Chronic obstructive pulmonary disease, unspecified COPD type J44.9 ; Tobacco use disorder F17.200 and BMI 22.0-22.9, adult Z68.22 Assessments Encounter Date Diagnosis (ICD Code) Assessment Notes Treatment Notes Treatment Clinical Notes Section Notes 05/28/2025 Acute sinusitis (ICD-10 - J01.90) 05/28/2025 Chronic obstructive pulmonary disease, unspecified COPD type (ICD-10 - J44.9) 05/28/2025 Tobacco use disorder (ICD-10 - F17.200) 05/28/2025 BMI 22.0-22.9, adult (ICD-10 - Z68.22) Plan Of Treatment Medication Medication Name Sig Start Date Stop Date Notes Flonase Allergy Relief 50 MCG/ACT 1 spray in each nostril Nasally Twice a day; Duration: 30 days 05/28/2025 Breyna 160-4.5 MCG/ACT 2 puffs Inhalatio n twice a day 05/28/2025 Symbicort 160-4.5 MCG/ACT 2 puffs Inhala tion twice a day 04/11/2025 Next Appt Details Follow Up: prn, Reason: Medications Administered Medication Instructions Date of Administration Dosage Notes Depo- Medrol 40 mg/ml 05/28/2025 1.5 mL Progress Notes * Satnos ESPINOZAOB: (75 yo M)Acc No.[id number]:05/28/2025 Progress Notes Patient: Santos RAMOS Provider: Yo Atkins M.D. :1950 A ge:75 Y S ex:Male Date:05/28/2025 Address:[address] [place] [address] [facility] [id number] Subjective: * Chief Complaints: * 1 . poss sinus- per Dr. Cotter * HPI: E NT/respiratory: 75 year old male presents with c/o nasal congestion a ll the time, clear drainage. c/o dizziness P t states he has had some dizzy spells. Pt states this has been going on for several weeks. D ermatology: c/o Wound P t has a sore spot on his left elbow that is scabbed over. Pt states when he pulled the scab off yellow/greenish puss came out. 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 * Surgical History: a ppendectomy child, C-scope 04/2015; 05/2018. * Hospitalization/Major Diagno stic Procedure: n one , [facility] ER-fell and knocked himself unconscious 11/21/10, [facility] ER-felt dizzy, unable to walk 03/02/2020. [...] tab(s) orally once a day , Not-Taking Symbicort 160-4.5 MCG/ACT Aerosol 2 puffs Inhalation twice a day , Medication List reviewed and reconciled with the patient * Allergies: P enicillin: he denies PCN allergy as of 10/28/2009. Objective: * Vitals: W t: 146.6, Temp: 98.2, BP: 134/78, HR: 73, Nurse: DAKOTA, Ht: 68, BMI:22.29. * Examination: E NT/Respiratory: General Appearance: N AD. E ars: a uditory canals normal bilaterally, TM's WNL. N ose : c ongested. S inuses : f rontal sinuses tender.?Oral cavity : n o erythema or exudate seen on pharynx. H eart : R RR, normal S1 S2, no murmurs. L ungs: c oarse breath sounds, scattered rhonchi, no rales or wheezes. ? Assessment: * Assessment: 1. A cute sinusitis - J01.90 (Primary) 2 . C hronic obstructive pulmonary disease, unspecified COPD type - J44.9 3 . T obacco use disorder - F17.200 ? 4 . B SC 22.0-22.9, adult - Z68.22 Plan: * Treatment: 2. C hronic obstructive pulmonary disease, unspecified COPD type Start Breyna Aerosol, 160-4.5 MCG/ACT, 2 puffs, Inhalation, twice a day, 1, Refills 2; S top Symbicort Aerosol, 160-4.5 MCG/ACT, 2 puffs, Inhalation, twice a day. * Therapeutic Injections: Depo- Medrol 40 mg/ml : 1.5 mL (Route: Intramuscular) given by Elsa Domínguez on right gluteus (Acute sinusitis) * Procedure Codes: G 2211 Complex e/m visit add on, J1010 Inj, methylpred acetate 1 mg, Units: 1.50 , 39720 ADMINISTRATION OF INJECTION, G8420 BMI<30 AND >=22 CALC & DOCU, G8783 BP SCR PRFRM RCMDD DEFIND SCR INTVL, 3075F SYST BP GE 130 - 139MM HG, 3078F DIAST BP < 80 MM HG * Follow Up: p rn * Images: Billing Information: * Visit Code: 87597 Office Visit, Est Pt., Level 3. Modifiers: 25 * Procedure Codes: G2211 Complex e/m visit add on. J1010 Inj, methylpred acetate 1 mg. Units: 1.50. 95106 ADMINISTRATION OF INJECTION. G8420 BMI<30 AND >=22 CALC & DOCU. G8783 BP SCR PRFRM RCMDD DEFIND SCR INTVL. 3075F SYST BP GE 130 - 139MM HG. 3078F DIAST BP < 80 MM HG. * Electronic signature of Yo Atkins MD on 06/17/2025 at 01:41 PM EDT Sign off status: Pending * Provider: Yo Atkins M.D. Date: 0 05/28/2025 Generated for Marisel beasley/Diya/[place] on: 1 01:41 PM EDT History and Physical Notes * HPI (History of Present Illness) Category Sub-Category Detail Notes Category Not es ENT/respiratory nasal congestion all the time, clear d rainage dizziness Pt states he has had some dizzy spells. Pt states this has been going on for several weeks Dermatology Wound Pt has a sore sp ot on his left elbow that is scabbed over. Pt states when he pulled the scab off yellow/greenish puss came out Examination Category Sub-Category Detail Notes Category Not es ENT/Respiratory Oral cavity : no erythema or exudate s een on pharynx Sinuses : frontal sinuses tend er Ears: auditory canals norm al bilaterally, TM's WNL Heart : RRR, normal S1 S2, n o murmurs Lungs: coarse breath sounds , scattered rhonchi, no rales or wheezes General Appearance: NAD Nose : congested
--- OUTSIDE RECORDS SUMMARY | 2025-06-06 10:45 | XMS_ITS ---
Author Organization [facility] Address [facility] [facility] [address] [place] [id number] Care Team Providers Care Waterworks Operator Name Role Phone Yo Atkins Primary Care Provider [phone] Allergies Allergen (clinical drug ingredient) Drug/Non Drug Allergy documented on EMR Reaction Allergy Type Onset Date Status Penicillin he denies PCN allergy as of 10/28/2009 Drug Allergy Active REASON FOR VISIT dizzy spells Medications Medication SIG (Take, Route, Frequency, Duration) Notes Start Date End Date Status Flonase Allergy Relief 50 MCG/ACT 1 spray in each nostril Nasally Twice a day 05/28/2025 Active Plavix 75 MG 1 tab(s) orally once a day; Duration: 90 days Active Aspirin 81 MG 1 tab(s) orally ever y other day Active Breyna 160-4.5 MCG/ACT 2 puffs Inhalatio n twice a day 05/28/2025 Active Vital Signs Weight 143.6 lbs 06/06/2025 Blood pressure systolic 130 mm Hg 06/06/20 25 Blood pressure diastolic 80 mm Hg 025 Heart Rate 78 /min 06/06/2025 Height 68 in 06/06/2025 BMI 21.83 kg/m2 06/06/2025 Encounters Encounter Location Date Provider Diagnosis [place] [address] [place] [address] [place] [id number] 06/06/2025 Yo Atkins Chronic sinusitis J32.9 Assessments Encounter Date Diagnosis (ICD Code) Assessment Notes Treatment Notes Treatment Clinical Notes Section Notes 06/06/2025 Chronic sinusitis (ICD-10 - J32.9) Plan Of Treatment Medication Medication Name Sig Start Date Stop Date Notes Flonase Allergy Relief 50 MCG/ACT 1 spray in each nostril Nasally Twice a day 05/28/2025 Pending Test Test Name Order Date CT Scan : Sinuses, without contrast 05/14 Next Appt Details Follow Up: prn, Reason: Medications Administered Medication Instructions Date of Administration Dosage Notes Depo- Medrol 40 mg/ml 06/06/2025 1.5 mL Progress Notes * Santos ESPINOZANEDOB: (75 yo M)Acc No.[id number]:06/06/2025 Progress Notes Patient: Santos RAMOS Provider: Yo Atkins M.D. :1950 A ge:75 Y S ex:Male Date:06/06/2025 Address:[address] [place] [address] Yo AlYASMIN [id number] Subjective: * Chief Complaints: * 1 . Dizzy spells. * HPI: E NT/respiratory: Misael continues to complain of intermittent dizzy spells and frontal headache and pressure. He had an episode of dizziness last night associated with sweats, nausea, and vomiting. No focal neurologic symptoms. No further episodes of vomiting. * ROS: D ERMATOLOGY: no R nilton. [...] Hospitalization/Major Diagno stic Procedure: n one , [facility] ER-fell and knocked himself unconscious 11/21/10, [facility] ER-felt dizzy, unable to walk 03/02/2020. [...] tab(s) orally once a day , Taking Flonase Allergy Relief 50 MCG/ACT Suspension 1 spray in each nostril Nasally Twice a day , Taking Breyna 160-4.5 MCG/ACT Aerosol 2 puffs Inhalation twice a day , Medication List reviewed and reconciled with the patient * Allergies: P enicillin: he denies PCN allergy as of 10/28/2009. Objective: * Vitals: W t: 143.6, Temp: 98.2, BP: 130/80, HR: 78, Nurse: wilman, Ht: 68, BMI:21.83. * Examination: E NT/Respiratory: General Appearance: N AD. E ars: a uditory canals normal bilaterally, TM's WNL. N ose : m ild congestion. S inuses : f rontal sinuses tender. O ral cavity : n o erythema or exudate seen on pharynx. H eart : R RR, normal S1 S2, no murmurs. L ungs: C oarse breath sounds which are generally diminished. Assessment: * Assessment: 1. C hronic sinusitis - J32.9 (Primary) Plan: * Treatment: * Therapeutic Injections: Depo- Medrol 40 mg/ml : 1.5 mL (Route: Intramuscular) given by WILMAN Montaño on left gluteus (Chronic sinusitis) * Procedure Codes: G 2211 Complex e/m visit add on, J1010 Inj, methylpred acetate 1 mg, Units: 1.50 , 83483 ADMINISTRATION OF INJECTION * Follow Up: p rn * Images: Billing Information: * Visit Code: 50713 Office Visit, Est Pt., Level 3. Modifiers: 25 * Procedure Codes: G2211 Complex e/m visit add on. J1010 Inj, methylpred acetate 1 mg. Units: 1.50. 31805 ADMINISTRATION OF INJECTION. * Electronic signature of Yo Atkins MD on 06/17/2025 at 01:40 PM EDT Sign off status: Pending * Provider: Yo Atkins M.D. Date: 0 06/06/2025 Generated for Martini ramos/Staceyg/eTransmitting on: 1 01:40 PM EDT History and Physical Notes * HPI (History of Present Illness) Category Sub-Category Detail Notes Category Not es ENT/respiratory Misael contin ues to complain of intermittent dizzy spells and frontal headache and pressure. He had an episode of dizziness last night associated with sweats, nausea, and vomiting. No focal neurologic symptoms. No further episodes of vomiting. Examination Category Sub-Category Detail Notes Category Not es ENT/Respiratory Oral cavity : no erythema or exudate s een on pharynx Sinuses : frontal sinuses tend er Ears: auditory canals norm al bilaterally, TM's WNL Heart : RRR, normal S1 S2, n o murmurs Lungs: Coarse breath sounds which are generally diminished General Appearance: NAD Nose : mild congestion
--- NOTE | 2025-06-17 13:38 | CT_ITS ---
FINAL REPORT TECHNIQUE: Thin section axial images were obtained through the paranasal sinuses without contrast. Reconstruction images were obtained from the axial data. Exam was performed using dose reduction techniques such as automated exposure control, adjustment of the mA and kV according to patient size, and use of iterative reconstruction technique. CLINICAL HISTORY: CHRONIC SINUSITIS COMPARISON: Report from prior CT 03/02/2020 FINDINGS: There are several mucous retention cyst/polyps in the left maxillary sinus. There is Tatian of the right sphenoid sinus. The remainder of the cysts are markable in appearance. The maxillary infundibulum are patent bilaterally. There is mild nasal septal deviation. The mastoid air cells are clear. There is no acute osseous abnormality. Remaining soft tissues are unremarkable. IMPRESSION: There are several mucous retention cysts/polyps in the left maxillary sinus. Opacification of the right sphenoid sinus consistent with chronic right sphenoid sinusitis. Reviewed, Interpreted and Dictated by Shaye Davila MD Transcribed by Haydee Betancourt Authenticated and [facility]
--- OUTSIDE RECORDS SUMMARY | 2025-06-17 13:40 | XMS_ITS | Patient Health Record ---
[facility] Address [address] [facility] [address] [place] [phone] Care Team Providers Care Foreclosure Specialist Name Role Phone Yo Atkins Primary Care Provider Kandy Morales Unavailable [phone] Allergies Allergen (clinical drug ingredient) Drug/Non Drug [...] bun 7, bili 1.3 Performing Lab: Notes/Report: Test performed by [facility], [facility] , [address], [place] [address] Philippe Lin MD, Equipment Associate CLIA: [id number] Sodium 131 135-145 mmol/L Potassium 4.3 3.5-5.3 [...] Interpretation:Normal Performing Lab: Notes/Report: Test performed by [facility] [address] [place] [address] , [place] [address] Philippe Lin MD, Equipment Associate CLIA: [id number] Magnesium 2.1 1.6-2.4 mg/dL P-PSA Reviewed date:04/16/2025 10:22:13 PM Interpretation:8.41 Performing Lab: Notes/Report: Test performed by [facility] [address] [place] [address] , [address], [place] [address] Philippe Lin MD, Equipment Associate CLIA: [id number] PSA 8.41 <4.00 ng/mL Please note this is an ultrasensitive PSA assay with a lower limit of detection of 0.014 ng/mL. This test is performed by the [employer] ECLIA methodology. Values obtained with different assay methods or kits cannot be directly compared. P-TSH Reviewed date:04/16/2025 10:22:13 PM Interpretation:Normal Performing Lab: Notes/Report: Test performed by [facility] [address] [place] [address] , [address], [place] [address] Philippe Lin MD, Equipment Associate CLIA: [id number] TSH 1.99 0.43-5.25 mU/L CBC Fingerstick (in house) Reviewed date:10/04/2024 03:25:03 PM Interpretation: Performing Lab: Notes/Report: wbc 6.6 3.5 - 10 lym 18.3 15 - 50 mid 5.5 2 - 15 gran 76.2 35 - 80 rbc 4.45 3.5 - 5.5 hgb 13.8 11.5 - 16.5 hct 41.4 35 - 55 mcv 93.2 75 - 100 mch 31.2 25 - 35 mchc 33.4 31 - 38 plat 308 100 - 400 H-TSH Reviewed date:07/06/2024 10:27:14 AM Interpretation:Normal Performing Lab: Notes/Report: TSH 2.34 0.465-4.68 uIU/mL H-CBC Reviewed date:07/10/2024 08:35:05 AM Interpretation:mcv 95, mch 32, mpv 7.1 Performing Lab: Notes/Report: WBC 5.6 4.8-10.8 K/mm3 RBC 4.74 4.60-6.20 M/mm3 HGB 15.3 14.1-18.0 g/dL HCT 45.1 42.0-52.0 % MCV 95.1 80-94 fl MCH 32.4 27.0-31.2 pg MCHC 34.0 31.8-35.4 g/dL RDW 13.1 11.5-17.5 % PLT 386 142-424 K/mm3 MPV 7.1 7.4-10.4 fl NE% 69.0 37.0-80.0 % LY% 18.2 10-50 % MO% 10.0 1.7-9.3 % EO% 1.8 0.1-12.0 % BA% 1.0 0.1-2.0 % NE# 3.8 1.8-7.8 K/mm3 LY# 1.0 0.7-4.5 K/mm3 MO# 0.6 0.1-1.0 K/mm3 EO# 0.1 0.0-0.4 K/mm3 BA# 0.1 0-0.2 K/mm3 H-Lipid Panel Reviewed date:07/10/2024 08:35:05 AM Interpretation:Normal Performing Lab: Notes/Report: Patient Fasting? Y TRIG 63 30-150 mg/dl CHOL 176 140-200 mg/dl DLDL 104.71 100-129 mg/dL VLDL 13 0-40 mg/dL HDL 60 40-60 mg/dl CHLHDL 2.9 1-3.5 H-CMP Reviewed date:07/10/2024 08:35:05 AM Interpretation:Na 134, bun 8 Performing Lab: Notes/Report: NA 134 136-145 mmol/L K 4.7 3.5-5.1 mmoL/L CL 102 98-107 mmol/L CO2 29 22.0-30.0 mmol/L GAP 7.7 5-15 mEq/L BUN 8 9-20 mg/dl CREATT 0.90 0.66-1.25 mg/dl GFRAA 100 >60 ML/MIN EGFR 82 >60 ml/min GLU 89 74-100 mg/dl CA 9.2 8.4-10.2 mg/dl BILIT 0.8 0.2-1.3 mg/dl AST 24 17-59 U/L ALT 14 12-78 U/L TP 6.3 6.3-8.2 g/dl ALB 3.9 3.5-5.0 g/dl GLOB 2.4 1.3-3.2 g/dL AGRATIO 1.6 1.1-1.8 ALP 102 38-126 U/L K-BLV-Euwssblylg Reviewed date:07/10/2024 08:35:05 AM Interpretation:4.99 Performing Lab: Notes/Report: PSA-D 4.99 0.0-4.0 ng/ml Reason For Referral No Information Medications Medication SIG (Take, Route, Frequency, Duration) [...] Inhalatio n twice a day 05/28/2025 Active Immunizations Vaccine Route Administration Date Status Comme nts COVID 19 Moderna Unknown 10/15/2020 Administered COVID 19 Moderna Unknown 11/12/2020 Administered COVID 19 Moderna Unknown 09/24/2021 Administered Fluzone High Dose (65yr and older) IM Intramuscular 07/23/2020 Administered Tetanus Tdap-Adacel (over 7yrs) IM Intramuscular 12/04/2010 Administered Problems Problem Type SNOMED Code ICD Code Onset Dates Problem Status W/U Status Risk Notes Problem History of cerebrovascular accident without residual deficits (904770654) History of CVA (cerebrovascular accident) (Z86.73) Active confirmed Problem Seasonal allergy (142675271) Seasonal allergies (J30.2) Active confirmed Problem Chronic sinusitis (85479076) Chronic sinusitis (J32.9) Active confirmed Problem Irritable bowel syndrome with diarrhea (258132312) Irritable bowel syndrome with diarrhea (K58.0) Active confirmed Problem Nicotine dependence (30458967) Personal history of nicotine dependence (Z87.891) Active confirmed Problem Cataract (358793944) Cataract (H26.9) Active confirmed Problem Gastroesophageal reflux disease without esophagitis (708443500) Gastroesophageal reflux disease without esophagitis (K21.9) Active confirmed Problem COPD - Chronic obstructive pulmonary disease (58734886) Chronic obstructive pulmonary disease, unspecified COPD type (J44.9) Active confirmed Problem CVA - Cerebrovascular accident (725667039) CVA (cerebral vascular accident) (I63.9) Active confirmed Problem Seasonal allergic rhinitis (946796540) Seasonal rhinitis (J30.2) Active confirmed Problem Dyslipidemia (502868992) Dyslipidemia (E78.5) Active confirmed Problem Transient ischemic attack (240390245) TIA (transient ischemic attack) (G45.9) Active confirmed Problem Tobacco use (606916765) Tobacco use disorder (F17.200) Active confirmed Problem Allergic rhinitis caused by pollen (30840130) Chronic seasonal allergic rhinitis due to pollen (J30.1) Active confirmed Problem Seasonal allergic rhinitis (776443779) Seasonal allergic rhinitis, unspecified trigger (J30.2) Active confirmed Vital Signs Heart Rate 78 /min 06/06/2025 Blood pressure diastolic 80 mm Hg 06/06/2025 Height 68 in 06/06/2025 Blood pressure systolic 130 mm Hg 06/06/2025 Weight 143.6 lbs 06/06/2025 BMI 21.83 kg/m2 06/06/2025 Encounters Encounter Location Date Provider Diagnosis [facility] [address] [facility] [address] [place] [id number] 09/11/2024 R Patric Atkins Chronic sinusitis J3 2.9 and Tobacco use disorder F17.200 [facility] [address] [facility] [address] [place] [id number] 10/04/2024 R Patric Atkins Acute sinusitis J01. 90 [facility] [address] [place] [id number] 02/19/2025 R Patric Wilbert SK (seborrheic keratosis) L82.1 and BMI 22.0-22.9, adult Z68.22 [facility] [address] [place], [place] [id number] 02/21/2025 R Patric Wilbert Chest wall pain R07. 89 ; Chronic obstructive pulmonary disease, unspecified COPD type J44.9 ; Dyslipidemia E78.5 ; Tobacco use disorder F17.200 and BMI 22.0-22.9, adult Z68.22 [facility] [address] [facility] [address] [place] [id number] 04/11/2025 R Patric Wilbert Leg pain, bilateral M79.604 ; Weight loss R63.4 ; Elevated PSA R97.20 ; Chronic obstructive pulmonary disease, unspecified COPD type J44.9 ; Tobacco use disorder F17.200 and BMI 21.0-21.9, adult Z68.21 [facility] [address] [facility] [address] [place], [place] [id number] 05/09/2025 Kandy Crowdy Skin abrasion T14.8X XA and BMI 21.0-21.9, adult Z68.21 [facility] [address] [place] [id number] 05/28/2025 R Patric Wilbert Acute sinusitis J01. 90 ; Chronic obstructive pulmonary disease, unspecified COPD type J44.9 ; Tobacco use disorder F17.200 and BMI 22.0-22.9, adult Z68.22 [facility] [address] [facility] [address] [place] [id number] 06/06/2025 R Patric Wilbert Chronic sinusitis J3 2.9 [facility] [address] [facility] [address] [place], [place] [id number] 07/10/2024 R Patric Wilbert [facility] [address] [facility] [address] [place], [place] [id number] 11/16/2024 R Patric Wilbert [facility] [address] [place], [place] [id number] 02/19/2025 R Patric Atkins [facility] [address] [place], [place] [id number] 02/26/2025 R Patric Atkins [facility] [address] [place], [place] [id number] 2025 R Patric Atkins [facility] [address] [place], [place] [id number] 05/01/2025 R Patric Atkins Chronic obstructive pulmonary disease, unspecified COPD type J44.9 Assessments Encounter Date Diagnosis (ICD Code) Assessment Notes Treatment Notes Treatment Clinical Notes Section Notes 10/04/2024 Acute sinusitis (ICD-10 - J01.90) Resume loratadine and Flonase he has at home. 02/19/2025 SK (seborrheic keratosis) (ICD-10 - L82.1) Lesions treated with cryotherapy and tolerated well. Aftercare instructions given. 02/19/2025 BMI 22.0-22.9, adult (ICD-10 - Z68.22) 02/21/2025 Chest wall pain (ICD-10 - R07.89) Alternate heat and ice. Tylenol and/or Motrin as needed 02/21/2025 Chronic obstructive pulmonary disease, unspecified COPD type (ICD-10 - J44.9) 09/11/2024 Chronic sinusitis (ICD-10 - J32.9) 04/11/2025 Weight loss (ICD-10 - R63.4) 04/11/2025 Leg pain, bilateral (ICD-10 - M79.604) 05/01/2025 Chronic obstructive pulmonary disease, unspecified COPD type (ICD-10 - J44.9) 05/09/2025 BMI 21.0-21.9, adult (ICD-10 - Z68.21) 05/09/2025 Skin abrasion (ICD-10 - T14.8XXA) The areas were cleaned with peroxide and antibiotic ointment telfa and co-ban were placed. Will keep clean and covered at home until they heal. 05/28/2025 Acute sinusitis (ICD-10 - J01.90) 05/28/2025 Chronic obstructive pulmonary disease, unspecified COPD type (ICD-10 - J44.9) 06/06/2025 Chronic sinusitis (ICD-10 - J32.9) 05/28/2025 Tobacco use disorder (ICD-10 - F17.200) 04/11/2025 Elevated PSA (ICD-10 - R97.20) 09/11/2024 Tobacco use disorder (ICD-10 - F17.200) 02/21/2025 Dyslipidemia (ICD-10 - E78.5) 02/21/2025 Tobacco use disorder (ICD-10 - F17.200) 04/11/2025 Chronic obstructive pulmonary disease, unspecified COPD type (ICD-10 - J44.9) 05/28/2025 BMI 22.0-22.9, adult (ICD-10 - Z68.22) 04/11/2025 Tobacco use disorder (ICD-10 - F17.200) 02/21/2025 BMI 22.0-22.9, adult (ICD-10 - Z68.22) 04/11/2025 BMI 21.0-21.9, adult (ICD-10 - Z68.21) Plan Of Treatment Pending Test Test Name Order Date CT Scan : Sinuses, without contrast 05/14 Insurance Providers Payer Name Payer Address Payer Phone Subscriber Number Group Number Insured Name Patient Relationship to Insured Coverage Start Date Coverage End Date MEDICARE PART B [address] [address] [place] [address] [id number] Santos ESPINOZA Self - patient is the insured [employer] (MEDICARE) [address] [address] [place] [address] [phone] [id number] Santos ESPINOZA Self - patient is the insured Medications Administered Medication Instructions Date of Administration Dosage Notes Depo- Medrol 40 mg/ml 07/12/2006 1.5 mL Depo- Medrol 40 mg/ml 06/29/2011 1.5 mL Depo- Medrol 40 mg/ml 07/20/2011 1.5 mL Depo- Medrol 40 mg/ml 12/23/2015 1.5 mL Depo- Medrol 40 mg/ml 05/25/2016 1.5 mL Depo- Medrol 40 mg/ml 11/04/2017 1.5 mL Depo- Medrol 40 mg/ml 07/06/2018 1.5 mL Depo- Medrol 40 mg/ml 07/15/2020 1.5 mL Depo- Medrol 40 mg/ml 11/04/2020 1 mL Depo- Medrol 40 mg/ml 07/27/2022 1.5 mL Depo- Medrol 40 mg/ml 11/25/2022 1.5 mL Depo- Medrol 40 mg/ml 05/28/2025 1.5 mL Depo- Medrol 40 mg/ml 06/06/2025 1.5 mL Dexamethasone 05/23/2006 1 mL Dexamethasone 06/16/2006 1 mL Dexamethasone 06/30/2006 1 mL Dexamethasone 10/31/2007 1 mL Dexamethasone 11/03/2007 1 mL Dexamethasone 10/14/2009 1 mL Dexamethasone 10/20/2009 1 mL Dexamethasone 10/28/2009 1 mL Dexamethasone 11/13/2009 1 mL Dexamethasone 12/02/2009 1 mL Dexamethasone 12/07/2010 1 mL Dexamethasone 11/19/2011 1 mL Dexamethasone 11/26/2011 1 mL Dexamethasone 05/09/2014 1 mL Dexamethasone 05/14/2014 1 mL Dexamethasone 05/18/2014 1 mL Dexamethasone 10/25/2014 1 mL Dexamethasone 10/29/2014 1 mL Dexamethasone 11/01/2014 1 mL Dexamethasone 05/18/2016 1 mL Dexamethasone 05/20/2016 1 mL Dexamethasone 06/04/2016 1 mL Dexamethasone 06/29/2016 1 mL Dexamethasone 10/04/2016 1 mL Dexamethasone 10/07/2016 1 mL Dexamethasone 10/11/2016 1.5 mL Dexamethasone 01/14/2018 1 mL Dexamethasone 01/17/2018 1 mL Dexamethasone 08/18/2018 1 mL Dexamethasone 08/24/2018 1 mL Dexamethasone 12/07/2018 1 mL Dexamethasone 12/11/2018 1 mL Dexamethasone 12/15/2018 1 mL Dexamethasone 12/21/2018 1 mL Dexamethasone 04/20/2019 1 mL Dexamethasone 04/23/2019 1 mL Dexamethasone 05/01/2019 1 mL Dexamethasone 05/24/2019 1 mL Dexamethasone 07/05/2019 1 mL Dexamethasone 07/07/2019 1 mL Dexamethasone 07/10/2019 1 mL Dexamethasone 07/16/2019 1 mL Dexamethasone 09/09/2020 1 mL Dexamethasone 07/30/2022 1.5 mL Dexamethasone 11/18/2022 1 mL Dexamethasone 12/13/2023 1 mL Dexamethasone 09/11/2024 1 mL Dexamethasone 10/04/2024 1 mL Medical (General) History Medical History History ICD Code irritable bowel syndrome tobacco abuse, 80 pack year history as o f 2015 chronic sinus problems kidney stone Elevated PSA Colon polyps Left occipital CVA - 02/2020 Surgical History Surgery Date(Month/Year) appendectomy child C-scope 04/2015; 05/2018 Hospitalization History Reason Date(Month/Year) [facility] ER-felt dizzy, unable to walk 020 [facility] ER-fell and knocked himself unconsci ous 11/21/10 none
== END 2025-06-17 23:59 | disposition home or self-care (01) ==
LOC: RAD 13:35
PROVIDERS: PCP Family Medicine; Visit Provider Family Medicine
DX: J33.8 Other polyp of sinus (principal); J32.3 Chronic sphenoidal sinusitis
CPT/HCPCS: 70486